=== PATIENT | female | born 1960 | race Caucasian/White ===

== ENCOUNTER 2024-02-05 09:39 | Emergency (ER) | payer BC, SELFPAY ==
[2024-02-05 09:52] VITALS: BP 111/63
[2024-02-05 10:05] VITALS: BMI 20.6
--- NOTE | 2024-02-05 10:06 | ED.GENMED ---
History of Present Illness
General
Chief Complaint: Chest Pain
Source: patient
Exam Limitations: none
Time Seen by Provider: 02/05/24 10:04
Nursing documentation reviewed up to this point in time: agreed with
History of Present Illness
History of Present Illness:
63-year-old female presents for department complaining of right-sided chest pain rating to her back, and abdominal pain. She takes a deep breath. She has a history of lupus. Her father has a history of aneurysm.
Past History
Past History
ED Past Medical History: Seizures and Other (Lupus)
Social History
Tobacco: Non-smoker
Alcohol: None
Drug: None
Living: with family
Review of Systems
Review of Systems
Allergies reviewed?: Yes
All Other Systems: Not applicable
Constitutional: Reports no symptoms
EENT: Reports no symptoms
Respiratory: Reports no symptoms
Cardiac: Reports chest pain
ABD/GI: Reports no symptoms
: Reports no symptoms
Musculoskeletal: Reports no symptoms
Skin: Reports no symptoms
Neurological: Reports no symptoms
Endocrine: Reports no symptoms
Hematologic/Lymphatic: Reports no symptoms
Psychiatric: Reports no symptoms
Phy Exam
Physical Exam
Physical Exam:
Physical Exam
General: no apparent distress, not acutely ill
Neck: supple. no meningeal signs. normal posterior pharynx
Heart: s1/s2 regular rate and rhythm, no murmur. equal radial
pulses.
HEENT: Pupils equal round reactive to light, EOMI
Lungs: no acute respiratory distress. clear bilaterally, right sided chest wall tenderness
Abdomen: normal bowel sounds. not tender. no CVAT
Neuro: alert and oriented. no focal neurological deficits cranial nerves II through XII intact
Skin: no rash
Psychiatric: well kept. interactive and cooperative
Extremities: no edema. no calf tenderness. negative homans. good distal pulses
Scores
Heart Score for Chest Pain Patients
STEMI patient?: No
History: Slightly or Non-Suspicious
ECG: Normal
Age: >45 - <65 years
Risk Factors: No Risk Factors
Troponin: </= Normal Limit
Heart Score for Chest Pain Patients: 1
Heart Score Risk: 2.5% MACE over next 6 weeks
Course
Orders/Labs/Results
Orders:
Orders
02/05/24 09:43
EKG [Electrocardiogram (*1)] Urgent
Reason for Study: Chest Pain
EKG- Treatment ONCE
02/05/24 10:22
CT Chest/abd/pelvis Angio W/wo Urgent
Comment:
Reason For Exam: chest pain rad to back, abd pain
Cardiac Monitoring- Treatment ONCE
IV Insert/Care/Rem.- Treatment PRN
02/05/24 10:24
Complete Blood Count/With Diff Urgent
Comprehensive Metabolic Panel Urgent
PTT Urgent
Troponin I Urgent
Abnormal Lab Results
02/05/24
10:24
Absolute Lymphs (auto) 1.0 L 10^3/uL
(1.2-3.4)
Lymphocytes % 19.4 L %
(20.5-51.1)
02/05/24 10:24
02/05/24 10:24
Vital Signs
Initial and Last Documented VS:
Initial Vital Signs
Temp Pulse Resp BP Pulse Ox
98.7 F 70 17 111/63 97
02/05/24 09:52 02/05/24 09:52 02/05/24 09:52 02/05/24 09:52 02/05/24 09:52
Last Documented Vital Signs
Temp Pulse Resp BP Pulse Ox
98.7 F 60 18 114/71 97
02/05/24 09:52 02/05/24 13:00 02/05/24 13:00 02/05/24 13:00 02/05/24 13:00
MDM/Problems Addressed
Differential Diagnosis Includes:
Aortic dissection, aortic aneurysm, PE, ACS
MDM/Problems Addressed:
63-year-old female with chest pain, likely chest wall pain. No signs of aortic dissection, ACS or PE. Ultrasound does show multiple areas of lymphadenopathy, and a thyroid nodule, and bilateral axillary lymphadenopathy. 6 mm Perifissure nodule
right lower lobe. Patient will follow-up in 6 to 12 months. Stable for discharge
Chronic conditions affecting care: Other (Lupus)
Acute Exacerbation and/or Progression of Chronic Illness: Other (Lupus)
*Radiology
Radiology exam reviewed: radiology read reviewed (CT chest abdomen pelvis shows lymphadenopathy, 6 mm nodule in right lower lobe, right thyroid nodule)
*Pulse Oximetry
Patient hypoxic: no
*EKG
Interpreted by ED Provider?: Yes
EKG Intrepretation Date: 02/05/24
EKG Intrepretation Time: 09:46
Interpretation: abnormal
Comparison EKG: no changes
Heart Rate: 65
Rate: normal
Rhythm: sinus
[place]: normal axis
Interval: normal interval
QRS Pattern: normal QRS
Ischemia: no ischemia
*[employer] Interpretation
Rate: normal
Interpretation: normal
Heart Rate: 60
Rhythm: sinus
*Critical Care Note
Total Time (30-74mins, 75-104mins- exclusive of procedures): Not Applicable
Patient Management
Social determinants of health affecting care: Living situation
Escalation/DeEscalation of care consider admission/obs:
Admit not indicated
ED Attending Note
-
Portions of this chart may have been created with voice recognition software.� Occasional wrong word or��sound alike� substitutions may have occurred due to the inherent limitations of voice recognition software.
Discharge Plan
Departure
Patient Disposition: Home (Routine Discharge)
Date of Disposition: 02/05/24
Time of Disposition: 13:41
Patient with high blood pressure during this ER visit?: No
Condition: Good
Discharge Problem:
Chest pain, Right thyroid nodule, Lung nodule
Instructions: Chest Pain PCP Follow Up, Pulmonary nodule, Thyroid nodules
Prescriptions:
No Action
hydroxychloroquine [Plaquenil] 200 MG tablet
200 mg PO HS
alprazolam [Xanax] 0.5 mg Tablet
0.5 mg PO TIDPRN PRN (Reason: anxiety)
lamotrigine [Lamictal XR] 200 mg Tablet Extended Release 24hr
200 mg PO HS
Referrals:
Paula Whitney, [Family Provider] - Call in 1-3 days for appt
Activity Restrictions/Additional Instructions:
Your CT scan showed a nodule in your right lower lung. Your primary care doctor should order a CT scan for 6 to 12-month follow-up. The CAT scan also showed a right thyroid nodule that should be followed up on with an ultrasound ordered by her
primary care. Return for any concerns.
Interventions
Interventions:
*Risk Screen - Suicide Last Done: 02/05/24 09:55
*General Assessment Last Done: 02/05/24 09:55
*Neglect/Abuse Screening Last Done: 02/05/24 09:55
ED- Cardiac Assessment Last Done: 02/05/24 10:25
Discharge Date and Time
Print Language: ITALIAN
[2024-02-05 10:08] VITALS: BP 114/55
[2024-02-05 10:40] LABS: % Basophils 0.9 % (0-2); % Eosinophils 3.2 % (0-6); % Immature Granulocytes 0.2 % (0-0.5); % Lymphocytes 19.4 % (20.5-51.1); % Monocytes 7.3 % (1.7-9.3); Absolute Basophils 0.1 10^3/uL (0-0.2); Absolute Eosinophils 0.2 10^3/uL (0-0.7); Absolute Monocytes 0.4 10^3/uL (0.1-0.6); Absolute Neutrophils 3.7 10^3/uL (1.4-6.5); Hematocrit 38.6 % (37.0-47.0); Mean Corp Hgb Conc. 33.7 g/dL (33.0-37.0); Mean Corpuscular Hgb 29.7 pg (27.0-31.0); Mean Corpuscular Volume 88.1 fL (81.0-99.0); Mean Platelet Volume 9.9 fL (7.4-10.4); Nucleated Red Blood Cells % 0 %; Platelet Count 200 10^3/uL (130-400); Red Blood Cell Count 4.38 10^6/uL (4.20-5.40); Red Cell Dist. Width 13.2 % (11.5-14.5); White Blood Cell Count 5.4 10^3/uL (4.8-10.8)
[2024-02-05 10:50] LABS: APTT 33.1 Sec (23.4-35.0)
[2024-02-05 10:58] LABS: ALT (SGPT) 14 U/L (0-35); AST (SGOT) 24 U/L (14-36); Albumin 4.1 g/dl (3.5-5.0); Alkaline Phosphatase 77 U/L (38-126); Blood Urea Nitrogen 14 mg/dl (7-17); Calcium 9.5 mg/dl (8.4-10.2); Carbon Dioxide 27 mmol/L (22-30); Chloride 106 mmol/L (98-107); Estimated Creatinine Clearance 75 ml/min; Glucose 87 mg/dl (70-99); Potassium 4.4 mmol/L (3.5-5.1); Sodium 140 mmol/L (135-145); Total Bilirubin 0.6 mg/dl (0.2-1.3); eGFR > 60.00
[2024-02-05 11:00] VITALS: BP 116/63
[2024-02-05 11:02] LABS: Troponin I < 0.012 ng/ml
[2024-02-05 12:05] VITALS: BP 109/64
[2024-02-05 13:00] VITALS: BP 114/71
[2024-02-05 14:00] VITALS: BP 121/74
== END 2024-02-05 14:16 | disposition home or self-care (01) ==
LOC: EMR 09:39
PROVIDERS: EMERGENCY PHYSICIAN Emergency Medicine; FAMILY PHYSICIAN Internal Medicine
DX: R07.89 Other chest pain (principal); E04.1 Nontoxic single thyroid nodule; R91.1 Solitary pulmonary nodule
CPT/HCPCS: 99285; 71275; 74174; 80053; 84484; 85025; 85730; 93005; Q9967